=== PATIENT | male | born 1965 | race Caucasian/White ===

== ENCOUNTER → 2024-12-11 07:21 | Outpatient (REF) | payer OTHER, SELFPAY | LOC: RCS 07:21 | PROVIDERS: ATTENDING PHYSICIAN Internal Medicine Cardiovascular Disease; FAMILY PHYSICIAN Family Medicine | DX: R06.02 Shortness of breath (principal) | CPT/HCPCS: 93306 ==

== ENCOUNTER → 2025-02-26 07:49 | Outpatient (REF) | payer OTHER, SELFPAY | LOC: HWRAD 07:49 | PROVIDERS: ATTENDING PHYSICIAN Internal Medicine Critical Care Medicine; FAMILY PHYSICIAN Family Medicine | DX: Z87.891 Personal history of nicotine dependence (principal) | CPT/HCPCS: 71271 ==